=== PATIENT | female | born 1980 | race Caucasian/White ===

== ENCOUNTER 2018-07-21 08:08 | Day surgery (SDC) | payer OTHER ==
[2018-07-21 08:43] VITALS: TEMP 98.4
--- NOTE | 2018-07-21 10:09 | CP.SDSHP ---
Same Day Surgery H & P - History Proposed Procedure: EGD Pre-Op Diagnosis: SEE NOTES - Previous Medical/Surgical History Endocrine/Metabolic: Thyroid Disease Misc: Other Pain: 4.Moderate Pain - Allergies Allergies: Allergies No Known Allergies Allergy (Verified 07/20/18 10:13) - Physical Exam General Appearance: N Vital Signs: Vital Signs 07/21/18 08:24 Temperature 98.4 F Pulse Rate 77 Respiratory 18 Rate Blood Pressure 110/70 O2 Sat by Pulse 100 Oximetry Mental Status: Alert & Oriented x3 Neuro: WNL Heart: WNL Lungs: WNL GI: Other - {Optional Preform as Required} Breast: WNL Abdomen: Other Rectal: Other Integument: WNL : WNL Ortho: WNL ENT: WNL - Date & Time Time: 10:09 Short Stay Discharge - Short Stay Discharge Admitting Diagnosis/Reason for Visit: GASTRIC ULCER Disposition: HOME/ ROUTINE
[2018-07-21] MEDS ORDERED: Pantoprazole 40 mg EC Tab PO STA ×2 (10:11→10:33)
[2018-07-21] MEDS ORDERED: Propofol 10 mg/ml Inj (20 ML) ONE (10:12)
[2018-07-21] MEDS ORDERED: Belladonna-Phenobarbital PO ONE ×2 (10:45→10:50)
[2018-07-21 11:17] VITALS: O2SAT 99
[2018-07-21 11:29] VITALS: BP 114/56; PULSE 75; RESP 14
== END 2018-07-21 11:25 | disposition home or self-care (01) ==
LOC: C.ENDO 08:08
PROVIDERS: ATTEND Specialist
DX: K29.50 Unspecified chronic gastritis without bleeding (principal); B96.81 Helicobacter pylori [H. pylori] as the cause of diseases classified elsewhere; K25.9 Gastric ulcer, unspecified as acute or chronic, without hemorrhage or perforation; K26.9 Duodenal ulcer, unspecified as acute or chronic, without hemorrhage or perforation; R10.13 Epigastric pain; E03.9 Hypothyroidism, unspecified
CPT/HCPCS: 43239; 84703; 88305; J2001; J2704

== ENCOUNTER 2018-07-29 08:22 | Day surgery (SDC) | payer OTHER ==
[2018-07-29 08:29] VITALS: BMI 34.2
[2018-07-29 08:50] LABS: BASO # 0.1 K/uL (0.0-0.2); BASO % 0.9 % (0.0-2.0); EOS # 0.3 K/uL (0.0-0.7); EOS % 3.6 % (0.0-4.0); HEMOGLOBIN 9.3 g/dL (11.0-16.0); LYMPH # 2.7 K/uL (1.0-4.3); LYMPH % 34.6 % (20.0-40.0); MEAN CELL VOLUME 70.8 fL (81.0-99.0); MEAN CORPUSCULAR HEMOGLOBIN 23.6 pg (27.0-31.0); MEAN CORPUSCULAR HGB CONC 33.4 g/dL (33.0-37.0); MEAN PLATELET VOLUME 7.8 fL (7.2-11.7); MONO # 0.6 K/uL (0.0-0.8); MONO % 7.7 % (0.0-10.0); NEUT # 4.1 K/uL (1.8-7.0); NEUT % 53.2 % (50.0-75.0); NRBC % 0.1 % (0.0-2.0); RBC 3.95 Mil/uL (3.80-5.20); RED CELL DISTRIBUTION WIDTH 14.8 % (11.5-14.5); WHITE BLOOD COUNT 7.7 K/uL (4.8-10.8)
[2018-07-29 09:07] LABS: BLOOD UREA NITROGEN 9 mg/dL (7-17); CALCIUM 8.7 mg/dl (8.6-10.4); GFR NON-AFRICAN AMERICAN > 60
[2018-07-29 09:11] VITALS: O2SAT 100
[2018-07-29] MEDS ORDERED: Propofol 10 mg/ml Inj (20 ML) ONE (09:36)
[2018-07-29] MEDS ORDERED: Lidocaine Hydrochloride 5 ML INJ ONE (09:37)
[2018-07-29] MEDS ORDERED: HYDROmorphone 0.5 mg/0.5 ml ISec IVP PRN (10:07)
[2018-07-29] MEDS ORDERED: Lactated Ringer's 1,000 ML IV SCH (10:15)
[2018-07-29 11:17] VITALS: RESP 16
[2018-07-29] MEDS ORDERED: Phenylephrine 10 mg/ml Inj ONE (11:30)
[2018-07-29 12:58] VITALS: BP 109/69; PULSE 65; TEMP 97.5
--- NOTE | 2018-07-31 08:40 | OP ---
PROCEDURE DATE: 07/29/2018 PREOPERATIVE DIAGNOSIS: A 37-year-old 3, para 3 with menorrhagia and endometrial polyp. POSTOPERATIVE DIAGNOSIS: A 37-year-old 3, para 3 with menorrhagia and endometrial polyp. SURGEON: Rosendo Crow MD [employer] OFFICER: None. ANESTHESIA: General anesthesia. ANESTHESIOLOGIST: Dr. Honeycutt. COMPLICATIONS: None. ESTIMATED BLOOD LOSS: 20 mL. DEFICIT: 150 mL. DESCRIPTION OF PROCEDURE: After informed consent was obtained, the patient was brought to the operating room and placed on the table, where general anesthesia was given. Once the anesthesia was given, the patient was prepped and draped in normal sterile fashion. Examination under anesthesia revealed the uterus to be 8 weeks' size. No pelvic or adnexal masses. The anterior lip of the cervix was grasped with a tenaculum. Gentle dilation of the cervix was done. Hysteroscope was introduced and found the polyp on the posterior wall of the uterus. Pictures were taken. MyoSure was used to take the polyp out. It was sent to Pathology. Sharp curettage of the endometrium was done and it was sent to Pathology. Moderate amount of tissue was sent to Pathology. After that, the hysteroscope was then introduced, no polyp was found. After that, the tenaculum was taken out. The patient tolerated the procedure well. Lap, sponge and instrument counts were correct x2. Rosendo Crow MD
== END 2018-07-29 12:47 | disposition home or self-care (01) ==
LOC: C.SDS 08:22
PROVIDERS: ATTEND Obstetrics & Gynecology
DX: N84.0 Polyp of corpus uteri (principal); N92.0 Excessive and frequent menstruation with regular cycle
CPT/HCPCS: 36415; 58558; 80048; 84703; 85025; 88305; J1170; J2370; J2405; J2704

== ENCOUNTER 2018-10-19 11:13 | Outpatient (CLI) | payer OTHER | END 2018-10-19 11:14 | disposition home or self-care (01) | LOC: C.USIC 11:13 ==